=== PATIENT | female | born 2000 | race Caucasian/White ===

== ENCOUNTER 2024-08-11 05:12 | Inpatient (IN) | payer OTHER, MEDICAID, SELFPAY ==
[2024-08-11] VITALS (64 sets, daily range): BP systolic 92–132; BP diastolic 50–97; PULSE 8–117; RESP 16; TEMP 36.4–37.3; O2SAT 81–99; BMI 26.6
[2024-08-11] MEDS: Lactated Ringers 1,000 ML 999 ML IV (05:25)
[2024-08-11] MEDS: Lactated Ringers 1,000 ML 50 ML IV (05:25)
[2024-08-11] MEDS: Ondansetron 4 MG/2 ML Vial IV (05:33)
[2024-08-11 05:39] LABS: Absolute Lymphocyte Count 2.11 X10^3/uL (0.83-4.51); Absolute Neutrophil Count 10.7 X10^3/uL (2.0-7.7); Basophil# 0.06 X10^3/uL; Basophil% 0.4 % (0-1); Eosinophil# 0.03 X10^3/uL; Eosinophils% 0.2 % (0-5); Hematocrit 33.7 % (37-47); Hemoglobin 10.6 g/dL (12.0-15.0); Lymphocyte # 2.11 X10^3/ul (0.83-4.51); Lymphocyte % 15.2 % (19-41); Mean Corp Hgb Conc 31.5 g/dL (32-36); Mean Corpuscular Hgb 23.1 pg (27.0-32.0); Mean Corpuscular Volume 73.4 fL (81-99); Mean Platelet Vol. 10.3 fl (6.2-12.0); Monocyte# 0.84 X10^3/uL; Monocyte% 6.1 % (0-10); NRBC Flagged by Analyzer 0 % (0-5); Neutrophil # 10.74 X10^3/uL (2.7-7.7); Neutrophil % 77.6 % (47-70); Platelet Count 244 K/mm3 (150-450); RBC Distribution Width SD 39.4 fl (35.1-43.9); Red Blood Count 4.59 M/mm3 (4.2-5.4); White Blood Count 13.9 K/mm3 (4.4-11.0)
[2024-08-11] MEDS: fentaNYL-bupivacaine (epidural) 100 ML BAG EPIDURAL (06:20)
--- NOTE | 2024-08-11 06:39 | PCM.HP.OB ---
HPI - General General Date of Admission: 08/11/24 HPI Narrative CHARLES ISAACS, is a 23 F at 39.6 weeks gestation who presents in spontaneous labor. Maternal Data Information RICHI Calculator Estimated Delivery Date Method Current WG Current Estimate 08/12/24 Manual 39w 6d PFSH PFSH Home Medications ?Medication ?Instructions ?Recorded ?Last Taken ?Type NK 08/11/24 Unknown History Allergy/AdvReac Type Severity Reaction Status Date / Time No Known Allergies Allergy Verified 08/11/24 03:51 Social History Smoking Status: Former smoker History Elective abortions Hx Para 1 Spontaneous abortions Hx # Term Pregnancies Ectopic pregnancies Hx # Pregnancies Multiple births # of living children NST FHR Rate Baby A Baseline: 125 Variability:: Moderate Accelerations:: 15 x 15 Decelerations:: None NST Reactive:: Yes FHR Category:: Category I Uterine Activity:: TOCO reading every 1-3 minutes ROS Eyes Eyes: Denies blurry vision, change in vision or spots in vision ENT HEENT: Denies dizziness or headache(s) Cardiovascular Cardiovascular: Denies abdominal pain, chest pain or dyspnea Respiratory/Chest Respiratory/Chest: Denies cough, dyspnea, shortness of breath at rest or shortness of breath with exertion Gastrointestinal Gastrointestinal: Denies abdominal pain, diarrhea or vomiting Genitourinary Genitourinary: Denies change in urinary stream, difficulty urinating or dysuria Musculoskeletal Musculoskeletal: Reports none Integumentary Integumentary: Denies rash Neurologic Neurologic: Denies dizziness, headache(s), memory loss or weakness Psychiatric Psychiatric: Reports none Vital Signs Vital Signs Vital Signs: 08/11/24 03:19 08/11/24 03:19 08/11/24 03:20 Temperature Temperature Source Temporal Pulse Rate 92 Respiratory Rate Blood Pressure 132/86 H BP Systolic 132 BP Diastolic 86 Pulse Ox 08/11/24 03:20 08/11/24 03:20 08/11/24 05:02 Temperature 98.9 F Temperature Source Temporal Pulse Rate Respiratory Rate 16 Blood Pressure BP Systolic BP Diastolic Pulse Ox 08/11/24 05:02 08/11/24 05:02 08/11/24 05:03 Temperature 98.6 F Temperature Source Pulse Rate 8 L Respiratory Rate 16 Blood Pressure BP Systolic BP Diastolic Pulse Ox 08/11/24 05:03 08/11/24 05:04 08/11/24 05:04 Temperature Temperature Source Pulse Rate 105 H Respiratory Rate Blood Pressure BP Systolic BP Diastolic Pulse Ox 81 96 08/11/24 05:05 08/11/24 05:05 08/11/24 06:07 Temperature Temperature Source Pulse Rate 105 H 95 Respiratory Rate Blood Pressure 125/70 H BP Systolic 125 BP Diastolic 70 Pulse Ox 08/11/24 06:07 08/11/24 06:08 08/11/24 06:08 Temperature Temperature Source Pulse Rate 100 Respiratory Rate Blood Pressure 125/85 H BP Systolic 125 BP Diastolic 85 Pulse Ox 97 08/11/24 06:10 08/11/24 06:10 08/11/24 06:11 Temperature Temperature Source Pulse Rate 97 103 H Respiratory Rate Blood Pressure 127/97 H BP Systolic 127 BP Diastolic 97 Pulse Ox 08/11/24 06:11 08/11/24 06:12 08/11/24 06:12 Temperature Temperature Source Pulse Rate 97 Respiratory Rate Blood Pressure BP Systolic BP Diastolic Pulse Ox 92 90 08/11/24 06:14 08/11/24 06:14 08/11/24 06:17 Temperature Temperature Source Pulse Rate 99 92 Respiratory Rate Blood Pressure 118/94 H BP Systolic 118 BP Diastolic 94 Pulse Ox 08/11/24 06:17 08/11/24 06:18 08/11/24 06:18 Temperature Temperature Source Pulse Rate 90 Respiratory Rate Blood Pressure BP Systolic BP Diastolic Pulse Ox 94 82 08/11/24 06:20 08/11/24 06:20 08/11/24 06:22 Temperature Temperature Source Pulse Rate 109 H 97 Respiratory Rate Blood Pressure 128/75 H BP Systolic 128 BP Diastolic 75 Pulse Ox 08/11/24 06:22 08/11/24 06:25 08/11/24 06:25 Temperature Temperature Source Pulse Rate 89 Respiratory Rate Blood Pressure 119/70 BP Systolic 119 BP Diastolic 70 Pulse Ox 97 08/11/24 06:25 08/11/24 06:25 08/11/24 06:27 Temperature Temperature Source Pulse Rate 77 92 Respiratory Rate Blood Pressure 119/72 BP Systolic 119 BP Diastolic 72 Pulse Ox 08/11/24 06:27 08/11/24 06:30 08/11/24 06:30 Temperature Temperature Source Pulse Rate 91 Respiratory Rate Blood Pressure 122/59 H BP Systolic 122 BP Diastolic 59 Pulse Ox 97 08/11/24 06:32 08/11/24 06:32 08/11/24 06:37 Temperature Temperature Source Pulse Rate 75 77 Respiratory Rate Blood Pressure BP Systolic BP Diastolic Pulse Ox 96 08/11/24 06:37 Temperature Temperature Source Pulse Rate Respiratory Rate Blood Pressure BP Systolic BP Diastolic Pulse Ox 98 Weight Weight: 160 lb 7.944 oz Body Mass Index (BMI) 26.6 Physical Exam Const alert, oriented x3 and no apparent distress General Appearance: cooperative Orientation / Consciousness: awake Exam Limitations: no limitations HEENT normocephalic Head and Scalp: normal to inspection Eyes General Eye: normal appearance of both eyes Neck full ROM and no lymphadenopathy Lymph Lymphatic: no lymphadenopathy noted Chest inspection of chest normal Resp normal respiratory effort, normal air movement and clear to auscultation bilaterally Effort and Inspection: able to speak in complete sentences and symmetric chest movement Cardio regular rate and regular rhythm GI normal to inspection, nondistended, normoactive bowel sounds Manual OB Exam: presentation cephalic Back/Spine normal ROM Extremity full ROM and no calf tenderness Skin no rashes or lesions noted General Skin Exam: no breakdown Neuro oriented x3 and CN's II-XII intact bilaterally Psych mental status grossly normal and thought process normal Labs Labs Labs: Blood Type Pending Antibody Screen Pending Hct 33.7 % (37-47) L Hgb 10.6 g/dL (12.0-15.0) L Syphilis Total Ab Pending Assessment & Plan (1) 39 weeks gestation of : (2) Spontaneous onset of labor: (3) History of forceps delivery in prior , currently : (4) with care elsewhere: PLAN: Plan Admit to labor and delivery Routine labs GBS negative Epidural when indicated Dr. Brooks notified of admission and is collaborating physician
[2024-08-11] MEDS: Oxytocin 15 Units/NS 250ml 15 UNITS/250 ML IV.SOLN 2 UNITS IV (07:45)
--- NOTE | 2024-08-11 08:49 | OB.VAGDELI_ITS ---
Assessment & Plan (1) (spontaneous vaginal delivery): (2) Care and examination of lactating mother: Maternal Data Information RICHI Calculator Estimated Delivery Date Method Current WG Current Estimate 08/12/24 Manual 39w 6d Vaginal Delivery Maternal Presentation Maternal Presentation: Other Maternal Presentation: at 39.6 weeks that presented in spontaneous onset of labor. Type of Induction: Pitocin (Augmentation) and Amniotomy (Augmentation) Vaginal Delivery Information Procedure Performed: Spontaneous Vaginal Delivery Surgeon/Practitioner: Judie Garza Date of Procedure: 08/11/24 Pre-Procedure Diagnosis: Term gestation, Spontaneous onset of labor Post-Procedure Diagnosis: , Live male infant Type of anesthesia: Epidural Estimated Blood Loss: 200 Time of Delivery: 08:34 Findings Description of procedure: Patient progressed to complete dilation. With good maternal effort, head delivered followed by anterior shoulder and remainder of body without any force, delay, or traction. Vigorous male was delivered atraumatically and placed on maternal abdomen. Pitocin IV started for active management of the third stage of labor. 3 vessel cord clamped and cut after delay and infant placed immediately skin to skin with patient. Placenta delivered spontaneously and intact. After inspection, vagina and perineum are intact. Vaginal sweep performed. Fundus is firm 2 below U and bleeding is hemostatic. Sponge and sharps counts correct. Patient and bonding well at this time. Dr. Wick notified of delivery. Routine post orders placed. 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
[2024-08-11] MEDS: Oxytocin 15 Units/NS 250ml 15 UNITS/250 ML IV.SOLN 83 UNITS IV (09:19)
[2024-08-11 09:56] LABS: Syphilis Antibodies Non-reactive
[2024-08-11] MEDS: Acetaminophen 500 MG Tablet 1000 MG PO ×2 (10:20→19:34)
[2024-08-11] MEDS: Ibuprofen 600 MG Tablet PO ×2 (15:54→23:30)
[2024-08-12 03:34] VITALS: PULSE 100; O2SAT 96
[2024-08-12 03:35] VITALS: BP 127/71; PULSE 53; PULSE 58; RESP 16; TEMP 36.4; O2SAT 99
[2024-08-12] MEDS: Acetaminophen 500 MG Tablet 1000 MG PO (03:39)
--- NOTE | 2024-08-12 08:55 | PCM.PN.OB ---
Subjective Subjective Doing well per patient and nursing staff. Ambulating and taking PO without difficulty. Voiding and passing flatus. Pain controlled. , services for assistance. Denies headache, visual changes, chest pain, shortness of breath, leg pain or increased bleeding. Lochia normal. Objective Data Objective Data Vital Signs: Vital Signs Temp Pulse Resp BP Pulse Ox O2 Del Method 97.6 F L 58 L 16 127/71 H 99 Room Air 08/12/24 03:35 08/12/24 03:35 08/12/24 03:35 08/12/24 03:35 08/12/24 03:35 08/12/24 03:35 Oxygen Delivery Method Room Air Weight: 160 lb 7.944 oz Body Mass Index (BMI) 26.6 Intake & Output: Intake and Output for Last 24 Hours 08/10/24 08/11/24 08/12/24 23:59 23:59 23:59 Intake Total 2414.16 / 2414.16 Output Total 1100 / 1100 Balance 1314.16 / 1314.16 Lab / Micro Data 08/11/24 05:25 Labs: Laboratory Results - last 24 hr 08/11/24 05:25: Syphilis Total Ab Non-reactive ROS Constitutional Constitutional: Reports systems reviewed and no addt'l complaints, except as documented; Denies headache(s) Eyes Eyes: Denies acute decrease in peripheral vision, blurry vision or change in vision ENT HEENT: Reports systems reviewed and no addt'l complaints, except as documented Cardiovascular Cardiovascular: Denies chest pain or dizziness Respiratory/Chest Respiratory/Chest: Denies cough, dyspnea, dyspnea on exertion, shortness of breath at rest or shortness of breath with exertion Gastrointestinal Gastrointestinal: Denies abdominal pain, diarrhea, nausea or vomiting Genitourinary Genitourinary: Denies abdominal discomfort Musculoskeletal Musculoskeletal: Denies limited range of motion Integumentary Integumentary: Reports systems reviewed and no addt'l complaints, except as documented Neurologic Neurologic: Reports systems reviewed and no addt'l complaints, except as documented Psychiatric Psychiatric: Reports systems reviewed and no addt'l complaints, except as documented Endocrine Endocrinology: Reports systems reviewed and no addt'l complaints, except as documented Hematologic/Lymphatic Hematologic/Lymphatic: Reports systems reviewed and no addt'l complaints, except as documented Allergic/Immunologic Allergic/Immunologic: Reports systems reviewed and no addt'l complaints, except as documented Physical Exam Const alert and oriented x3 General Appearance: cooperative Orientation / Consciousness: awake, oriented to person, oriented to place and oriented to time Exam Limitations: no limitations HEENT normocephalic Head and Scalp: normal to inspection, normocephalic and atraumatic Face and Sinus: normal facial exam Eyes General Eye: normal appearance of both eyes Neck full ROM Chest Chest: symmetrical chest wall rise Resp normal respiratory effort and normal air movement Auscultation: clear to auscultation bilaterally Cardio regular rate, regular rhythm, S1 normal heart sound, S2 normal heart sound, no murmurs, no rub, no gallops and no clicks GI normal to inspection, nondistended, normoactive bowel sounds and non-tender appearance of the vagina normal Bladder / Kidney Exam: no CVA tenderness Back/Spine normal ROM Extremity normal to inspection and full ROM Skin no rashes or lesions noted Neuro oriented x3, CN's II-XII intact bilaterally and moves all extremities Sensorium / Orientation: awake, alert and oriented to person Motor Exam: clonus absent Deep Tendon Reflexes: Rt Patellar (L4): 2+ and Lt Patellar (L4): 2+ Assessment & Plan (1) Care and examination of lactating mother: (2) (spontaneous vaginal delivery): PLAN: Plan 1) Routine care, PPD #1 2) Vitals signs stable 3) Pain controlled 4) , services PRN 5) D/C home 6) Follow up in 2 weeks and 6 weeks
--- NOTE | 2024-08-12 08:56 | PCM.DC.SUM ---
Providers Date of Admission: 08/11/24 Primary Care Physician: Milana Primary Care Phys Reason For Visit: LABOR/DEL VAG DEL Diagnosis Discharge Diagnosis (1) Care and examination of lactating mother: Status: Acute Code(s): Z39.1 - Encounter for care and examination of lactating mother (2) (spontaneous vaginal delivery): Status: Acute Code(s): O80 - Encounter for full-term uncomplicated delivery Plan 1) Routine care, PPD #1 2) Vitals signs stable 3) Pain controlled 4) , services PRN 5) D/C home 6) Follow up in 2 weeks and 6 weeks Medications at Discharge Home Medications acetaminophen 500 mg tablet 1,000 mg (2 x 500 mg) PO Q6H PRN PRN Pain 1-10 Or Fever #0 tabs 08/12/24 ibuprofen 600 mg tablet 600 mg PO Q6H PRN PRN Pain Score 1-10 #0 tabs 08/12/24 Weight / BMI Weight Weight: 160 lb 7.944 oz Body Mass Index (BMI) 26.6 ABG / Lab / Microbiology Data 08/11/24 05:25 Laboratory: Laboratory Results - last 24 hr 08/11/24 05:25: Syphilis Total Ab Non-reactive D/C Instructions Discharge Diet: No restrictions Discharge Activity: Return to Normal Activity, May Drive, May Shower and May Take a Tub Bath May resume sexual activity in: 6 weeks Weight Bearing Status: Full weight bearing Call your doctor if you observe: Fever of 101 or Higher, Inability to urinate, Using more than 1 pad per hour, Shortness of breath, Chest pain, Increased palpitations (irregular heartbeat), Calf discomfort and Uncontrolled pain DC O2, CPAP, BIPAP Needs Home O2 Discharge instructions: No Please Follow Up With: Joycelyn Jones CNM When: 2 week virtual visit and 6 week visit Meaningful Use Info Meaningful Use Meaningful Use Diagnoses (Choose all that apply): None applicable Ischemic Stroke Statin Dosing Therapy Reference: STATIN DOSE THERAPY REFERENCE: * Patients > 75 years receive moderate or high dose statin therapy. * Patients 75 years or YOUNGER should receive HIGH intensity statin dose unless contraindicated. You will be required to document reason for non-treatment if statin daily dose does not meet guidelines. HIGH DOSE STATIN THERAPY DAILY Atorvastatin > than or = to 40 mg Rosuvastatin > than or = to 20 mg Amlodipine + Atorvastatin > than or = to 2.5/40 mg Ezetimibe + Simvastatin 10/80 mg Simvastatin 80mg Discharge Plan Admission Admit Date/Time: 08/11/24 05:12 Primary Reason for Your Visit: Vaginal Delivery Attending Provider: Judie Garza Primary Care Provider: Care Physician,Milana Primary Discharge Orders/Prescriptions Prescriptions: New acetaminophen 500 mg Tablet 1,000 mg PO Q6H PRN PRN (Reason: Pain 1-10 Or Fever) Qty: 0 0RF ibuprofen 600 mg Tablet 600 mg PO Q6H PRN PRN (Reason: Pain Score 1-10) Qty: 0 0RF Referrals / Follow Up: Care Physician,No Primary [Primary Care Provider] - Disposition Disposition (needs filled in before D/C Order can be placed): Home, Self Care
[2024-08-12 10:00] VITALS: BP 123/74; PULSE 60; RESP 16; TEMP 36.6
[2024-08-12 10:03] VITALS: BP 123/74; PULSE 61
[2024-08-12] MEDS: Ibuprofen 600 MG Tablet PO (10:08)
== END 2024-08-12 13:00 | disposition home or self-care (01) | DRG 807 ==
LOC: WPOUT 05:12 → WP 05:27
PROVIDERS: Admitting Provider Advanced Practice Midwife; Referring Provider Advanced Practice Midwife; Visit Provider Advanced Practice Midwife
DX: O80 Encounter for full-term uncomplicated delivery (principal); Z37.0 Single live birth; Z3A.39 39 weeks gestation of pregnancy; Z87.59 Personal history of other complications of pregnancy, childbirth and the puerperium; Z87.891 Personal history of nicotine dependence
CPT/HCPCS: 59025; 59050; 85025; 86780; 86850; 86900; 86901; J2405